=== PATIENT | male | born 1990 | race Caucasian/White ===

== ENCOUNTER 2016-04-05 09:17 | Day surgery (SDC) | payer MEDICARE, MEDICAID ==
--- NOTE | 2016-04-05 10:32 | PROCNOTE ---
Tommy Bull [id number] PROCEDURE: Gastrostomy tube change. INDICATIONS: The patient is a 25-year-old male with traumatic brain damage and longstanding gastrostomy tube. Leakage of current tube has been noted. He now undergoes gastrostomy tube change. MEDICATIONS: None. DESCRIPTION OF PROCEDURE: The current 24[place] gastrostomy tube balloon was deflated and the current gastrostomy tube was removed. A new 24-[place] gastrostomy tube was inserted into the stomach and the balloon inflated with 6 mL of water. IMPRESSION: Gastrostomy tube change. PLAN: The patient will resume previous gastrostomy tube use and medications as previously ordered. Medical follow up will be by Dr. Yvette Jewell. JOB: [id number] CC: Dr. Yvette Jewell
== END 2016-04-05 10:35 | disposition home or self-care (01) ==
LOC: SDC 09:17
PROVIDERS: ATTEND Internal Medicine Gastroenterology
PROC: 0D20XUZ Change Feeding Device in Upper Intestinal Tract, External Approach (ICD-10-PCS; principal; 2016-04-05)
DX: K94.29 Other complications of gastrostomy (principal); Z87.820 Personal history of traumatic brain injury

== ENCOUNTER 2016-05-19 11:18 | Day surgery (SDC) | payer MEDICARE, MEDICAID ==
--- NOTE | 2016-05-19 12:02 | OP ---
Tommy Bull : 1990 [id number] DATE: 05/19/2016 PROCEDURE: Gastrostomy tube change. INDICATION: The patient is a 25-year-old male with traumatic brain damage and a longstanding gastrostomy tube. Home care providers have indicated that the patient has pulled on his gastrostomy tube partially displacing it. He now undergoes gastrostomy tube change. MEDICATIONS: None. DESCRIPTION OF PROCEDURE: The current 24 [place] gastrostomy tube balloon was deflated and the gastrostomy tube withdrawn through the abdominal wall. A replacement 24 [place] gastrostomy tube was inserted into the stomach and the balloon inflated with 6 mL of water and the gastrostomy tube secured to the abdominal wall with a bumper. IMPRESSION: Gastrostomy tube change. PLAN: The patient's gastrostomy tube use will be resumed as previously ordered and medical follow up will be by Dr. Yvette Jewell. JOB: [id number] CC: Dr. Yvette Jewell
== END 2016-05-19 12:00 | disposition home or self-care (01) ==
LOC: SDC 11:18
PROVIDERS: ATTEND Internal Medicine Gastroenterology
PROC: 0DH67UZ Insertion of Feeding Device into Stomach, Via Natural or Artificial Opening (ICD-10-PCS; principal; 2016-05-19)
DX: K94.29 Other complications of gastrostomy (principal); Z87.820 Personal history of traumatic brain injury

== ENCOUNTER 2016-07-08 13:31 | Emergency (ER) | payer MEDICARE, MEDICAID | END 2016-07-08 15:41 | disposition home or self-care (01) | LOC: ED 13:31 | DX: Z43.1 Encounter for attention to gastrostomy (principal); Z87.820 Personal history of traumatic brain injury ==

== ENCOUNTER 2016-07-17 09:23 | Day surgery (SDC) | payer MEDICARE, MEDICAID ==
--- NOTE | 2016-07-17 12:09 | PROCNOTE ---
Tommy MILLER : 1990 [id number] DATE OF PROCEDURE: July 17, 2016 PROCEDURE: GASTROSTOMY TUBE CHANGE. INDICATIONS: The patient is a 25-year-old male with a permanent gastrostomy tube. This was pulled out inadvertently by the patient. In the emergency room a 22 Citizen [place] gastrostomy tube was inserted. The patient now undergoes gastrostomy tube change to the usual, for this patient, 24 [place] size. MEDICATIONS: None. NARRATIVE OF PROCEDURE: The 22 [place] gastrostomy tube balloon was deflated and make gastrostomy tube was removed. A 24 [place] gastrostomy tube was inserted into the stomach and the balloon filled with 6 mL of water. The gastrostomy tube was secured to the abdominal wall with a bumper. IMPRESSION: Feeding gastrostomy tube change. COMMENT: The patient's gastrostomy tube use will be resumed as previously ordered and medical follow up will be by Dr. Yvette Jewell. Job [id number] Cc: Yvette Jewell M.D.
== END 2016-07-17 10:33 | disposition home or self-care (01) ==
LOC: SDC 09:23
PROVIDERS: ATTEND Internal Medicine Gastroenterology
PROC: 0D20XUZ Change Feeding Device in Upper Intestinal Tract, External Approach (ICD-10-PCS; principal; 2016-07-17)
DX: K94.29 Other complications of gastrostomy (principal); Z87.820 Personal history of traumatic brain injury